=== PATIENT | female | born 1960 | race Caucasian/White ===

== ENCOUNTER 2017-11-20 09:58 | Outpatient (CLI) | payer BC ==
--- NOTE | 2017-11-20 12:50 | RAD ---
CHEST 1 VIEW RIGHT RIB SERIES 2 VIEWS: History Fall. Posttraumatic pain. FINDINGS: Normal cardiac silhouette. Pulmonary vessels and hilum are normal. No masses or consolidation. No pneumothorax or osseous abnormalities. RIGHT RIBS 2 VIEWS: No fracture. No cortical irregularity or periosteal reaction IMPRESSION: 1. No acute cardiopulmonary process. 2. No posttraumatic change in the right bony thorax. POS: [facility]
== END 2017-11-20 09:59 | disposition home or self-care (01) ==
LOC: SCSRAD 09:58
PROVIDERS: ATTEND Nurse Practitioner Family
DX: Z04.3 Encounter for examination and observation following other accident (principal); W19.XXXA Unspecified fall, initial encounter

== ENCOUNTER 2017-12-27 10:38 | Outpatient (CLI) | payer BC | END 2017-12-27 10:39 | disposition home or self-care (01) | LOC: BICMAMMO 10:38 | PROVIDERS: ATTEND Obstetrics & Gynecology | DX: Z12.31 Encounter for screening mammogram for malignant neoplasm of breast (principal) | CPT/HCPCS: 77063; 77067 ==

== ENCOUNTER 2018-01-04 13:40 | Outpatient (CLI) | payer BC | END 2018-01-04 13:41 | disposition home or self-care (01) | LOC: BICMAMMO 13:40 | PROVIDERS: ATTEND Obstetrics & Gynecology | DX: R92.2 Inconclusive mammogram (principal); R92.1 Mammographic calcification found on diagnostic imaging of breast | CPT/HCPCS: G0279 ==

== ENCOUNTER 2018-12-23 18:26 | Observation (INO) | payer BC ==
[2018-12-23] MEDS ORDERED: Ondansetron PF 4 MG/2 ML Vial ONE (19:01)
[2018-12-23 19:15] LABS: #Lymphocytes 1.2 thou/uL (1.20-3.40); #Monocytes 0.4 thou/uL (0.11-0.59); #Neutrophils 5.5 thou/uL (1.40-6.50); %Basophils 0.7 % (0.0-1.0); %Eosinophils 0.2 % (0.0-10.0); %Lymphocytes 16.4 % (21.0-51.0); %Monocytes 5.6 % (0.0-10.0); %Neutrophils 77.2 % (42.0-75.0); Mean Corpuscular HGB CONC 35.1 g/dL (32.0-36.0); Mean Corpuscular Hemoglobin 33.8 pg (27.0-31.0); Mean Corpuscular Volume 96.4 fL (78.0-98.0); Mean Platelet Volume 6.6 fL (7.4-10.4); Platelet Count 297 thou/uL (130-400); RBC Distribution Width 11.8 % (11.5-14.5); Red Blood Cell (RBC) Count 3.53 mill/uL (4.20-5.40); White Blood Cell (WBC) Count 7.1 thou/uL (4.8-10.8)
[2018-12-23 19:31] LABS: Amphetamine Not Detected (NotDetected); Barbiturates Screen Not Detected (NotDetected); Benzodiazepine Screen Not Detected (NotDetected); Cocaine Metabolite Screen Not Detected (NotDetected); Medtox Control Line Valid? VALID (VALID); Medtox Reader # READER 1; Methadone Not Detected (NotDetected); Methamphetamine Not Detected (NotDetected); Opiate Screen Not Detected (NotDetected); Oxycodone Screen Not Detected (NotDetected); Phencyclidine (PCP) Not Detected (NotDetected); THC/Cannabinoid Screen Not Detected (NotDetected); Tricyclic Screen Not Detected (NotDetected)
[2018-12-23 19:36] LABS: ALT (SGPT) 34 U/L (8-55); AST (SGOT) 40 U/L (5-34); Albumin 4.6 g/dL (3.5-5.0); Alkaline Phosphatase 77 U/L (40-110); Anion Gap 28 mmol/L (10-20); BUN (Urea Nitrogen) 19 mg/dL (9.8-20.1); Bilirubin, Total 0.5 mg/dL (0.2-1.2); CK (CPK) 62 U/L (29-168); Calc. Creatinine Clearance 0 mL/min (70-130); Calcium 9.5 mg/dL (7.8-10.44); Carbon Dioxide 18 mmol/L (22-29); Chloride 93 mmol/L (98-107); Estimated GFR-MDRD 48; Globulin 3.1 g/dL (2.4-3.5); Glucose 70 mg/dL (70-105); Magnesium 1.5 mg/dL (1.6-2.6); Protein, Total 7.7 g/dL (6.0-8.3); Sodium 134 mmol/L (136-145)
--- NOTE | 2018-12-23 19:47 | RAD ---
EXAM: Single view of the chest HISTORY: Tachycardia COMPARISON: 03/26/2016 FINDINGS: Single view of the chest shows a normal sized cardiomediastinal silhouette. There is no katie dence of consolidation, mass, or pleural effusion. The bones are unremarkable. IMPRESSION: No evidence of acute cardiopulmonary disease
[2018-12-23] MEDS ORDERED: Magnesium 2 GM/50 ML BAG (IN WATER) ONE (20:13)
[2018-12-23 20:35] LABS: Actual Bicarbonate (HCO3v) 19 mEq/L (22-28); Analyzer IN Cardio ER; Base Excess -5.1 mEq/L (-2.0 to +3.0); Calcium, Ionized 1.01 mmol/L (1.16-1.32); Chloride (ABG LAB) 98 mmol/L (98-106); Hemoglobin (Hb) 11.4 g/dL (11.7-16.0); Potassium - ABG Lab 4.83 mmol/L (3.70-5.30); Sodium 131.9 mmol/L (133-146); pH (venous) 7.38 (7.32-7.43)
[2018-12-23] MEDS ORDERED: Lorazepam 2 MG/ML VIAL ONE (21:05)
[2018-12-23 21:48] LABS: Acetaminophen Less than 6.0 mcg/mL (10.0-30.0); Alcohol Less than 10 mg/dL (Less than 10); Anion Gap 22 mmol/L (10-20); BUN (Urea Nitrogen) 23 mg/dL (9.8-20.1); Calc. Creatinine Clearance 0 mL/min (70-130); Calcium 8.2 mg/dL (7.8-10.44); Carbon Dioxide 18 mmol/L (22-29); Chloride 98 mmol/L (98-107); Estimated GFR-MDRD 64; Glucose 112 mg/dL (70-105); Potassium 4.6 mmol/L (3.5-5.1); Salicylate 8.3 mg/dL (15.0-30.0); Sodium 133 mmol/L (136-145)
--- NOTE | 2018-12-23 21:49 | CT ---
CT Abdomen Pelvis W Con: 12/23/2018 9:05 PM CLINICAL INFORMATION: Generalized abdominal pain COMPARISON: None. TECHNIQUE: Multiple contiguous axial images were obtained and a CT of the abdomen and pelvis with IV contrast. C oronal and sagittal reformats were performed. FINDINGS: Lower Chest: Mild bilateral dependent atelectasis Abdomen: Liver: within normal limits. Bile Ducts: Normal caliber. Gallbladder: No calcified gallstones. Normal caliber wall. Pancreas: within normal limits. Spleen: within normal limits. Adrenals: within normal limits. Kidneys: within normal limits. Pelvis: Reproductive Organs: No pelvic masses. Ureters: within normal limits. Bladder: within normal limits. Peritoneum: No ascites or free air, no fluid collection. Bowel: Normal caliber. Normal appendix. Mesentery and Retroperitoneum: No enlarged mesenteric or retroperitoneal lymph nodes. Vessels: Atherosclerotic calcifications. Abdominal Wall: within normal limits. Bones: Within normal limits IMPRESSION: No evidence of acute intraabdominal or pelvic abnormality.
[2018-12-23] MEDS ORDERED: Mag-Al 1200 mg/1200 mg/30 ML UDCUP ONE (22:03)
[2018-12-23] MEDS ORDERED: Lidocaine Viscous Sol 2% 15 ml UD Cup ONE (22:03)
[2018-12-23 22:05] LABS: T4 4.3 ug/dL (4.87-11.72); Thyroid Stimulating Hormone 0.1713 uIU/mL (0.35-4.94)
--- NOTE | 2018-12-23 22:51 | CT ---
EXAM: CT brain without contrast HISTORY: Possible brain mass. Abnormal lab results COMPARISON: None TECHNIQUE: Multiple contiguous axial images were obtained and a CT of the brain without contrast. FINDINGS: The brain is normal in morphology and attenuation without focal lesions or confluent areas of infarction. There is no evidence of hydrocephalus, intracranial hemorrhage, or extra-axial fluid collection. The calvarium and overlying soft tissues are unremarkable. The visualized paranasal sinuses and masto id air cells are well aerated. IMPRESSION: No evidence of acute intracranial abnormality
[2018-12-23 23:14] LABS: Bilirubin Negative (Negative); Blood, Urine Negative (Negative); Clarity Clear (Clear); Glucose, Urine (Dipstick) Normal (Negative); Leukocyte Negative Leu/uL (Negative); Nitrite Negative (Negative); Protein, Urine (Dipstick) Negative (Neg-Trace); Urobilinogen Normal mg/dL (Less than 2)
[2018-12-24] MEDS ORDERED: Senokot S 8.6-50 MG TAB PO PRN (01:22)
[2018-12-24] MEDS ORDERED: Acetaminophen 325 MG TAB PO PRN (01:22)
[2018-12-24 01:28] VITALS: BMI 21.6
[2018-12-24] MEDS: Sodium Chloride 0.9% 1,000 ML IV SCH ×3 (01:57→15:30)
[2018-12-24 03:55] LABS: #Lymphocytes 1.7 thou/uL (1.20-3.40); #Monocytes 0.6 thou/uL (0.11-0.59); %Basophils 0.5 % (0.0-1.0); %Eosinophils 0.4 % (0.0-10.0); %Lymphocytes 32.1 % (21.0-51.0); %Monocytes 10.9 % (0.0-10.0); %Neutrophils 56.1 % (42.0-75.0); Hemoglobin 10.1 g/dL (12.0-16.0); Mean Corpuscular HGB CONC 34.8 g/dL (32.0-36.0); Mean Corpuscular Hemoglobin 33.7 pg (27.0-31.0); Mean Corpuscular Volume 96.9 fL (78.0-98.0); Mean Platelet Volume 6.5 fL (7.4-10.4); Platelet Count 264 thou/uL (130-400); RBC Distribution Width 11.8 % (11.5-14.5); White Blood Cell (WBC) Count 5.4 thou/uL (4.8-10.8)
[2018-12-24 04:14] LABS: Anion Gap 13 mmol/L (10-20); BUN (Urea Nitrogen) 22 mg/dL (9.8-20.1); Calc. Creatinine Clearance 54 mL/min (70-130); Calcium 7.9 mg/dL (7.8-10.44); Carbon Dioxide 23 mmol/L (22-29); Chloride 101 mmol/L (98-107); Estimated GFR-MDRD 52; Glucose 217 mg/dL (70-105); Potassium 4.1 mmol/L (3.5-5.1); Sodium 133 mmol/L (136-145)
--- NOTE | 2018-12-24 04:29 | HP ---
CHIEF COMPLAINT: Nausea, vomiting, and palpitations. HISTORY OF PRESENT ILLNESS: The patient is a 58-year-old female, who initially presented to the hospital with complaints of nausea and feeling of palpitations x1 day. The patient stated that over the weekend, she had significant amount of alcoholic beverages and has not been eating very much. She stated that she also has been kind of out with her and has not been drinking enough water. The patient stated that this morning when she woke up, she felt very nauseous, did not have any emesis; however, felt that her heart was beating really fast. At this time, she took her heart rate and her heart rate was 97. She continued to feel worse throughout the day. She tried to hydrate herself with some Gatorade and water; however, she came into the ER for further evaluation. In the ER, the patient was found to have some abnormal laboratory of metabolic acidosis. At this time, a blood gas was done, which indicated a normal pH. She also had some electrolyte abnormalities and also endocrine abnormalities. She did have a CT brain and a CT of abdomen and pelvis. PAST MEDICAL HISTORY: She has a history of hypertension. ALLERGIES: SHE HAS NO KNOWN DRUG ALLERGIES. MEDICATIONS: She is on a very low dose of lisinopril. PAST SURGICAL HISTORY: She has had tonsillectomy and some orthopedic surgeries. SOCIAL HISTORY: She drinks occasionally; however, at times on the weekends, she will drink more than a few drinks. Denies any smoking history. No drug use. She is a full code. FAMILY HISTORY: Mother had cancer. Father had diabetes. REVIEW OF SYSTEMS: All negative except for the ones mentioned above in the HPI. LABORATORY RESULTS: Are as of the following; WBCs of 7.1, hemoglobin of 12.0, hematocrit of 34.1. Her platelets are 297. Chemistry; sodium of 133, potassium of 4.6, BUN of 22, creatinine 0.90. Her ionized calcium was 1.01. She also had a lactic acid, which was normal at 1.2. Her TSH was 0.17 and her free T4 was 4.3. Random cortisol was 21. She also had a blood gas, which indicated a pH of 7.38. She did have a CT brain, CT of abdomen and pelvis and a chest x-ray and at this time, I am unable to open any of these records due to the computer not working. However, I was told by the ER doctor that all of her tests so far were negative. ASSESSMENT AND PLAN: The patient is a very pleasant 58-year-old female, who presents to the hospital with nausea and palpitations. 1. Possible dehydration. We will start the patient on some IV hydration. She got 2 L in the ER. We will continue some normal saline and check her labs in the morning. 2. Metabolic acidosis, unknown etiology. This could be from starvation ketosis since she has been drinking a lot of alcohol and not eating enough food. We will check her labs in the morning to see if those have improved. 3. Hypocalcemia. Again, this could be due to her electrolyte abnormality, could be due to secondary to her drinking and not eating very much. 4. Low TSH and free T4. I asked the patient variety of symptoms in regard to feeling hot, cold, weight loss, hair loss. She denies any of the symptoms; however, it seems like it is neither hypo nor hyper. This could be possible central in terms of thyroid issues. Would refer to endocrine for outpatient workup. May consider getting an MRI brain, if not, an outpatient workup is acceptable with this patient. 5. Deep venous thrombosis prophylaxis. We will put the patient on SCDs. Job ID: [id number]
[2018-12-24] MEDS ORDERED: Calcium Carbonate 500 MG ChewTAB PO SCH (09:00)
[2018-12-24 15:50] VITALS: BP 125/77; TEMP 98.4
--- NOTE | 2018-12-24 18:03 | PDOC.HOSPP ---
- Subjective Encounter Date: 12/24/18 Encounter Time: 18:01 Subjective: Ms. Hernández was seen today in follow-up of nausea, and feeling shaky, and palpitations. She feels better today. The nausea has resolved. - Objective Vital Signs & Weight: Vital Signs (12 hours) Temp Pulse Resp BP Pulse Ox 12/24/18 15:49 98.4 F 77 18 125/77 96 12/24/18 11:15 98.6 F 83 18 119/74 95 12/24/18 07:41 98.6 F 81 18 100/66 96 Weight Weight 133 lb 12.8 oz I&O: 12/23/18 12/24/18 12/25/18 06:59 06:59 06:59 Intake Total 990 Balance 990 Result Diagrams: 12/24/18 03:40 12/24/18 03:40 Hospitalist ROS - Medication Medications: Active Medications Generic Name Dose Route Start Last Admin Trade Name Freq PRN Reason Stop Dose Admin Calcium Carbonate 1,000 mg 12/24/18 09:00 12/24/18 08:37 Tums PO 12/26/18 09:01 1,000 mg BID ROMARIO Administration Sodium Chloride 1,000 mls @ 150 mls/hr 12/24/18 02:00 12/24/18 15:30 Normal Saline 0.9% IV 1,000 mls .[id number] ROMARIO Administration Sodium Chloride 10 ml 12/24/18 09:00 12/24/18 08:47 Flush - Normal Saline IVF Not Given Q12HR ROMARIO - Exam Eye: PERRL, anicteric sclera Heart: RRR, no murmur, no gallops, no rubs, normal peripheral pulses Respiratory: CTAB, no wheezes, no rales, no ronchi, normal chest expansion, no tachypnea, normal percussion Gastrointestinal: soft, non-tender, non-distended, normal bowel sounds, no palpable masses, no hepatomegaly, no splenomegaly Extremities: no cyanosis, no edema Hosp A/P (1) Hypomagnesemia Code(s): E83.42 - HYPOMAGNESEMIA Status: Acute (2) Dehydration Code(s): E86.0 - DEHYDRATION Status: Acute - Plan * She is clinically improved * Her magnesium has been replaced * Close outpatient follow-up with regards to her thyroid function * Stable for discharge home
[2018-12-24] MEDS ORDERED: FLU VACC QS2019-20(6MOS UP)/PF 60 MCG/0.5 ML SYRINGE IM ONE (21:00)
--- NOTE | 2018-12-24 21:55 | DIS ---
DATE OF ADMISSION: 12/24/2018 DATE OF DISCHARGE: 12/24/2018 PRIMARY CARE PHYSICIAN: Tino Shea MD DISCHARGE DISPOSITION: Home. DISCHARGE DIAGNOSES: 1. Hypomagnesemia. 2. Dehydration. 3. Subclinical hyperthyroidism. 4. Hypertension. DISCHARGE MEDICATIONS: Lisinopril 5 mg daily. PROCEDURES DONE DURING THE ADMISSION: The patient had a CT scan of the brain, which was negative for any acute intracranial abnormalities. Also, had a CT scan of the abdomen and pelvis, which was negative for any acute or significant intraabdominal pathology. CODE STATUS: Full code. ALLERGIES: NO KNOWN DRUG ALLERGIES. HOSPITAL COURSE: Ms. Hernández is a pleasant 58-year-old female, who presented to the emergency room with severe nausea as well as feeling weak and having palpitations. She was evaluated in the ER and found to have a low magnesium level. She admits to poor oral intake recently. She was also found to have a low TSH and low T4, but her free T4 was normal as well as her serum cortisol level. I suspect this could be a subclinical hyperthyroidism and recommend close outpatient followup with her thyroid function test, but suspect most of her symptoms could be explained by the low magnesium level. She was hydrated and her magnesium was replaced, and she is subsequently discharged home. Job ID: [id number]
== END 2018-12-24 19:07 | disposition home or self-care (01) ==
LOC: ERS 18:26 → SURG A 12-24 00:40
PROVIDERS: ADMIT Internal Medicine; ATTEND Internal Medicine
DX: E83.42 Hypomagnesemia (principal); E86.0 Dehydration; E05.90 Thyrotoxicosis, unspecified without thyrotoxic crisis or storm; I10 Essential (primary) hypertension; E83.51 Hypocalcemia; E87.2 Acidosis; Z79.899 Other long term (current) drug therapy
CPT/HCPCS: 36415; 70450; 71045; 74177; 80048; 80053; 80306; 80307; 81003; 82533; 82550; 82805; 83605; 83735; 84436; 84439; 84443; 84481; 84484; 85025; 85379; 93005; 96361; 96365; 96375; G0378; J2060; J2405; J3475

== ENCOUNTER 2019-04-24 06:39 | Outpatient (CLI) | payer BC ==
[2019-04-24 10:09] LABS: #Eosinphils 0.1 thou/uL (0.0-0.7); #Lymphocytes 1.7 thou/uL (1.20-3.40); #Monocytes 0.3 thou/uL (0.11-0.59); #Neutrophils 1.6 thou/uL (1.40-6.50); %Eosinophils 2.7 % (0.0-10.0); %Lymphocytes 44.6 % (21.0-51.0); %Monocytes 8.3 % (0.0-10.0); %Neutrophils 43.4 % (42.0-75.0); Hemoglobin 12.7 g/dL (12.0-16.0); Mean Corpuscular HGB CONC 34.4 g/dL (32.0-36.0); Mean Corpuscular Hemoglobin 32.7 pg (27.0-31.0); Mean Corpuscular Volume 95.2 fL (78.0-98.0); Mean Platelet Volume 7.2 fL (7.4-10.4); Platelet Count 236 thou/uL (130-400); RBC Distribution Width 11.7 % (11.5-14.5); Red Blood Cell (RBC) Count 3.87 mill/uL (4.20-5.40); White Blood Cell (WBC) Count 3.7 thou/uL (4.8-10.8)
[2019-04-24 10:29] LABS: Anion Gap 14 mmol/L (10-20); BUN (Urea Nitrogen) 13 mg/dL (9.8-20.1); Calc. Creatinine Clearance 0 mL/min (70-130); Calcium 9.5 mg/dL (7.8-10.44); Carbon Dioxide 27 mmol/L (22-29); Chloride 101 mmol/L (98-107); Estimated GFR-MDRD 72; Glucose 84 mg/dL (70-105); Potassium 4.3 mmol/L (3.5-5.1); Sodium 138 mmol/L (136-145)
--- NOTE | 2019-04-25 12:28 | EKG ---
Test Reason : Blood Pressure : / mmHG Vent. Rate : 087 BPM Atrial Rate : 087 BPM P-R Int : 152 ms QRS Dur : 072 ms QT Int : 374 ms P-R-T Axes : 072 093 084 degrees QTc Int : 450 ms Normal sinus rhythm Rightward axis Abnormal ECG Confirmed by VERENICE POOLE ([id number]) on 04/25/2019 12:27:48 PM Referred By: LUIS ANTONIO Confirmed By:VERENICE POOLE
== END 2019-04-24 06:40 | disposition home or self-care (01) ==
LOC: LABBT 06:39
PROVIDERS: ATTEND Orthopaedic Surgery Hand Surgery
DX: Z01.818 Encounter for other preprocedural examination (principal); M67.441 Ganglion, right hand
CPT/HCPCS: 80048; 85025; 93005; 93010

== ENCOUNTER 2019-04-26 05:37 | Day surgery (SDC) | payer BC ==
[2019-04-24 08:26] VITALS: BMI 19.8
[2019-04-26] MEDS ORDERED: Bupivacaine PF 0.5% 30 ML VIAL ONE (06:38)
[2019-04-26] MEDS ORDERED: Betamet Acet/Betamet Na Ph 30 MG/5 ML VIAL ONE (06:38)
[2019-04-26] MEDS ORDERED: Bacitracin Zinc Ointment 30 gm TUBE ONE (06:38)
[2019-04-26] MEDS ORDERED: Fentanyl 100 MCG/2 ML VIAL ONE (07:07)
[2019-04-26] MEDS ORDERED: Midazolam HCl 2 mg/2 ml Vial ONE (07:07)
--- NOTE | 2019-04-26 08:18 | RAD ---
2 intraoperative images of the right thumb: 04/26/2019 COMPARISON: None HISTORY: Excision/biopsy of ganglion cyst FINDINGS: 2 coned down intraoperative images of the right thumb provided. Degenerative change noted a t the first metacarpal phalangeal joint and the first interphalangeal joint. No associated fracture or radiopaque foreign body seen in this region. IMPRESSION: Intraoperative imaging as detailed above.
--- NOTE | 2019-04-26 09:06 | OP ---
DATE OF PROCEDURE: 04/26/2019 PREOPERATIVE DIAGNOSIS: A 2.5 cm ganglion, right thumb, with interphalangeal joint osteophyte.. POSTOPERATIVE DIAGNOSIS: A 2.5 cm ganglion, right thumb, with interphalangeal joint osteophyte.. FINDINGS: A 5-mm osteophyte in the radial aspect of the of the distal phalanx intra-articular portion. PROCEDURES PERFORMED: 1. Arthrotomy with osteophyte excision, right thumb interphalangeal. 2. Right thumb interphalangeal ganglion cystectomy, 2.5 x 1.0 cm benign mass. 3. C-arm supervision less than or equal to 1 hour. 4. Splint, short-arm application, right upper extremity. SPECIMEN REMOVED AND SENT TO THE LAB: 1. Ganglion. 2. Osteophyte. TOURNIQUET TIME: 20 minutes at 250 mmHg pressure. ESTIMATED BLOOD LOSS: 10 mL. DESCRIPTION OF PROCEDURE: After successful general endotracheal anesthesia, she had her limb prepped and draped. A T-type incision was made with a transverse limb being across the joint the longitudinal parallel and right over the mass, which was midline radial. We carried through skin and subcutaneous tissue, preserving the cyst, and dissected the cyst free from the skin, free for underlining extensor mechanism, then followed it to the joint. The cyst was on both sides of the joint in terms of distal and proximal. We then followed the cyst stalk into the joint, elevated approximately 5 mm of the extensor tendon and found a large osteophyte, which we excised off the base of the distal phalanx using a small rongeur. We performed radiographs, which showed the joint was still stable and it did show that osteophyte was gone. Tourniquet was deflated, the cyst and osteophyte were sent to the lab for pathological specimen. We placed 5 mL of Celestone intra-articularly and in the wound. Obtained hemostasis, and closed the extensor mechanism back to the retinaculum using 4-0 suture. We then closed the dermis and epidermis in 1 layer with 4-0 nylon interrupted simple pattern. A total of 20 mL of 0.5% Marcaine was given, 12 before the surgery as metacarpophalangeal block and 8 afterwards. A splint was applied. She left the operating room without evidence of anesthetic or operative complication. Job ID: [id number]
[2019-04-26] MEDS ORDERED: Dexamethasone 20 MG/5 ML VIAL ONE (10:05)
[2019-04-26] MEDS ORDERED: PROPOFOL 200 MG/20 ML VIAL ONE (10:05)
[2019-04-26] MEDS ORDERED: Lidocaine 1% PF 5 ML VIAL ONE (10:05)
[2019-04-26] MEDS ORDERED: Ondansetron PF 4 MG/2 ML Vial ONE (10:05)
[2019-04-26] MEDS ORDERED: Ketorolac Tromethamine 30 MG/ML VIAL ONE (10:05)
== END 2019-04-26 09:30 | disposition home or self-care (01) ==
LOC: SDC 05:37
PROVIDERS: ATTEND Orthopaedic Surgery Hand Surgery
PROC: 0RBW0ZZ Excision of Right Finger Phalangeal Joint, Open Approach (ICD-10-PCS; principal; 2019-04-26)
PROC: 0PBR0ZZ Excision of Right Thumb Phalanx, Open Approach (ICD-10-PCS; principal; 2019-04-26)
DX: M25.741 Osteophyte, right hand (principal); M67.441 Ganglion, right hand
CPT/HCPCS: 76000; 88304; 88307; 88311; J0690; J0702; J1100; J1885; J2001; J2250; J2405; J2704; J3010; J3490; S0020

== ENCOUNTER 2019-09-03 15:16 | Outpatient (CLI) | payer BC ==
--- NOTE | 2019-09-03 16:32 | MMO ---
Bilateral MAMMO Bilat Screen [facility]. CLINICAL HISTORY: Patient is 58 years old and is seen for screening. The patient has no family history of breast cancer. The patient has no personal history of cancer. VIEWS: The views performed were: bilateral craniocaudal with tomosynthesis and bilateral mediolateral oblique with tomosynthesis. FILMS COMPARED: The present examination has been compared to prior imaging studies performed at [facility] on 04/25/2015, 04/29/2016, 12/27/2017 and 01/04/2018. This study has been interpreted with the assistance of computer-aided detection. MAMMOGRAM FINDINGS: There are scattered fibroglandular densities. There are benign appearing calcifications seen in both breasts. There are benign scattered densities in both breasts. There are no suspicious masses, suspicious calcifications, or new areas of architectural distortion. IMPRESSION: THERE IS NO MAMMOGRAPHIC EVIDENCE OF MALIGNANCY. A ROUTINE FOLLOW-UP MAMMOGRAM IN 1 YEAR IS RECOMMENDED. THE RESULTS OF THIS EXAM WERE SENT TO THE PATIENT. ACR BI-RADS Category 2 - Benign finding MAMMOGRAPHY NOTE: 1. A negative mammogram report should not delay a biopsy if a dominant of clinically suspicious mass is present. 2. Approximately 10% to 15% of breast cancers are not detected by mammography. 3. Adenosis and dense breasts may obscure an underlying neoplasm. Reported by: COLTON OBRIEN MD Electonically Signed: [id number]
== END 2019-09-03 15:17 | disposition home or self-care (01) ==
LOC: BICMAMMO 15:16
PROVIDERS: ATTEND Family Medicine
DX: Z12.31 Encounter for screening mammogram for malignant neoplasm of breast (principal)
CPT/HCPCS: 77063; 77067